=== PATIENT | female | born 1995 | race Caucasian/White ===

== ENCOUNTER 2018-03-18 16:01 | Emergency (ER) | payer SELFPAY ==
[~2018-03-18] VITALS: Ht 162.6 cm; Wt 45.0 kg
[~2018-03-18 16:01] MED LIST: ABIL5TAB6 PO; METH18 PO
[2018-03-18 16:14] VITALS: BP 99/55; PULSE 89; RESP 14; TEMP 98.6; O2SAT 99
[2018-03-18] MEDS ORDERED: ZOLO100T PO (16:20)
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
== END 2018-03-18 17:20 ==
LOC: NEPD 16:01
DX: F13.20 Sedative, hypnotic or anxiolytic dependence, uncomplicated (principal); R53.83 Other fatigue; F32.9 Major depressive disorder, single episode, unspecified; F90.9 Attention-deficit hyperactivity disorder, unspecified type; F17.200 Nicotine dependence, unspecified, uncomplicated
CPT/HCPCS: 99282

== ENCOUNTER 2018-05-22 01:20 | Inpatient (IN) ==
[2018-05-23 18:27] VITALS: RESP 16
[2018-05-26 05:19] VITALS: BP 111/65; PULSE 107; TEMP 98; O2SAT 99
== END 2018-05-26 12:43 | disposition home or self-care (01) ==
LOC: NEPJ 01:20 → H260 14:50 → NEDA 15:20 → H260 15:25
PROVIDERS: ADMIT Student in an Organized Health Care Education/Training Program; ATTEND Student in an Organized Health Care Education/Training Program